=== PATIENT | male | born 1970 | race Caucasian/White ===

== ENCOUNTER 2024-10-26 23:48 | Day surgery (SDC) | payer OTHER, SELFPAY ==
[2024-10-26 19:46] VITALS: BP 158/91
[2024-10-26 20:15] LABS: % Basophils 0.4 % (0-2); % Eosinophils 1.3 % (0-6); % Immature Granulocytes 0.2 % (0-0.5); % Monocytes 8.2 % (1.7-9.3); % Neutrophils 57.9 % (42.2-75.2); Absolute Eosinophils 0.1 10^3/uL (0-0.7); Absolute Monocytes 0.8 10^3/uL (0.1-0.6); Absolute Neutrophils 5.5 10^3/uL (1.4-6.5); Hematocrit 48.1 % (39.0-52.0); Hemoglobin 16.1 g/dL (13.0-18.0); Mean Corp Hgb Conc. 33.5 g/dL (33.0-37.0); Mean Corpuscular Hgb 30.1 pg (27.0-31.0); Mean Corpuscular Volume 89.9 fL (80.0-94.0); Mean Platelet Volume 9.3 fL (7.4-10.4); Nucleated Red Blood Cells % 0 % (-); Platelet Count 274 10^3/uL (130-400); Red Blood Cell Count 5.35 10^6/uL (4.70-6.10); Red Cell Dist. Width 13.2 % (11.5-14.5); White Blood Cell Count 9.5 10^3/uL (4.8-10.8)
[2024-10-26 20:17] LABS: Urine Albumin 1+ (Neg - Trace); Urine Bilirubin Negative (Negative); Urine Character Clear (Clear); Urine Color Yellow; Urine Glucose Negative (Negative); Urine Ketone Negative (Negative); Urine Leukocyte Negative (Negative); Urine Nitrite Negative (Negative); Urine Occult Blood 4+ (Negative); Urine Specific Gravity 1.025 (<1.030); Urine Urobilinogen Negative (Neg - 1+)
[2024-10-26] MEDS: TYLENOL 1000 MG PO (20:24)
[2024-10-26 20:27] LABS: ALT (SGPT) 35 U/L (0-50); AST (SGOT) 35 U/L (17-59); Albumin 4.7 g/dl (3.5-5.0); Alkaline Phosphatase 60 U/L (38-126); Blood Urea Nitrogen 16 mg/dl (9-20); Calcium 9.9 mg/dl (8.4-10.2); Carbon Dioxide 31 mmol/L (22-30); Chloride 101 mmol/L (98-107); Glucose 108 mg/dl (70-99); Potassium 4.4 mmol/L (3.5-5.1); Sodium 140 mmol/L (135-145); Total Bilirubin 1.1 mg/dl (0.2-1.3); Total Protein 7.9 g/dl (6.3-8.2); eGFR > 60.00
[2024-10-26 20:43] LABS: Urine Bacteria Few (Negative); Urine Red Blood Cell 50-60 /HPF (0-2); Urine Squamous Cell 0-2 /LPF (Few); Urine White Cell 0-2 /HPF (0-5)
[2024-10-26 21:26] VITALS: BMI 33.8
[2024-10-26] MEDS: NSS 1000 IV (21:29)
[2024-10-26] MEDS: TORADOL 15 MG IV (21:34)
[2024-10-26 21:56] VITALS: BP 147/90
[2024-10-26 22:00] VITALS: BP 134/80
[2024-10-26 23:00] VITALS: BP 137/80
--- NOTE | 2024-10-26 23:01 | ED.GENMED ---
History of Present Illness
General
Chief Complaint: Back Pain
Source: patient and spouse
Exam Limitations: none
Time Seen by Provider: 10/26/24 21:05
Nursing documentation reviewed up to this point in time: agreed with
History of Present Illness
History of Present Illness:
53-year-old male past medical history of hypertension hyperlipidemia presenting to the emergency department with right-sided low back pain described as very severe achy and dull similar episode yesterday that self resolved again today a few hours
prior to arrival. Has been intermittent since. Associated nausea no vomiting. No significant changes in urination.
Review of Systems
Review of Systems
Allergies reviewed?: Yes
All Other Systems: ROS reviewed and negative except as documented in HPI and ROS
Phy Exam
Physical Exam
Physical Exam:
GENERAL: Alert , in no apparent distress
EYE: pupils equal and reactive
NECK: Supple, no significant adenopathy.
ENT: o/p clr, mmm.
CARDIAC: Regular rate and rhythm .
LUNGS: Clear breath sounds bilaterally, no acute respiratory distress, no wheezes/rales/rhonchi
ABDOMEN: Soft, without focal tenderness, no r/g, no cvat
NEUROLOGICAL: Alert and oriented, no focal neuro deficits
SKIN: Warm and dry, skin intact.
MUSCULOSKELETAL: No edema, well perfused.
PSYCH: Normal and appropriate interaction.
Course
Orders/Labs/Results
Orders:
Orders
10/26/24 19:57
Complete Blood Count/With Diff Urgent
Comprehensive Metabolic Panel Urgent
Urinalysis Reflex To Culture Urgent
Date Specimen was Collected: 10/26/24
Time Specimen was Collected: 19:49
Urine Microscopic Reflex Cult Urgent
10/26/24 20:23
Acetaminophen [Tylenol] 1,000 mg .ROUTE .STK-MED ONE
10/26/24 20:24
Acetaminophen [Tylenol] 1,000 mg PO NOW STA
10/26/24 21:13
CT Abd/pel Without Iv Or Oral Urgent
Comment:
Reason For Exam: right flank pain blood in urine
0.9% Sodium Chloride 1000 ml [Nss] 1,000 ml IV BOLUS
Ketorolac [Toradol] 15 mg IV NOW STA
Abnormal Lab Results
10/26/24
19:57
Absolute Monos (auto) 0.8 H 10^3/uL
(0.1-0.6)
Carbon Dioxide 31 H mmol/L
(22-30)
Glucose 108 H mg/dl
(70-99)
Ur Occult Blood Reflex 4+ A
(Negative)
Urine RBC 50-60 A /HPF
(0-2)
Urine Bacteria (Reflex) Few A
(Negative)
Urine Albumin (Reflex) 1+ A
(Neg - Trace)
10/26/24 19:57
10/26/24 19:57
Vital Signs
Initial and Last Documented VS:
Initial Vital Signs
Temp Pulse Resp BP Pulse Ox
98.2 F 83 20 158/91 99
10/26/24 19:46 10/26/24 19:46 10/26/24 19:46 10/26/24 19:46 10/26/24 19:46
Last Documented Vital Signs
Temp Pulse Resp BP Pulse Ox
98.2 F 83 20 134/80 95
10/26/24 19:46 10/26/24 19:46 10/26/24 19:46 10/26/24 22:00 10/26/24 22:15
MDM/Problems Addressed
MDM/Problems Addressed:
53-year-old male presenting to the emergency department today with concerns of right-sided flank discomfort. Here labs unremarkable urinalysis does show red blood cells but no evidence of infection. CT scan confirming right sided 8 mm UPJ stone.
This was discussed with urology recommend bring into the hospital for extraction tomorrow. Patient will be n.p.o. midnight. Otherwise symptoms well-controlled here with IV pain medication.
*Critical Care Note
Total Time (30-74mins, 75-104mins- exclusive of procedures): Not Applicable
ED Attending Note
-
Portions of this chart may have been created with voice recognition software.� Occasional wrong word or��sound alike� substitutions may have occurred due to the inherent limitations of voice recognition software.
Discharge Plan
Departure
Patient Disposition: Admit
Date of Disposition: 10/26/24
Time of Disposition: 23:06
Admit to: Med/Surg
Admit to doctor: Candido
Presentation/result/management discussed w/ accepting MD/DO: Hospitalist
Patient with high blood pressure during this ER visit?: No
Condition: Good
Covid-19: Not Applicable
Discharge Problem:
Kidney stone on right side
Referrals:
Cristal Bright DO [Family Provider] -
Interventions
Interventions:
*Risk Screen - Suicide Last Done: 10/26/24 19:46
*General Assessment Last Done: 10/26/24 19:46
*Neglect/Abuse Screening Last Done: 10/26/24 19:46
ED- Fall Risk Assessment Last Done: 10/26/24 21:26
*ED COVID-19 Vaccine History Last Done: 10/26/24 19:46
ED-Musculoskeletal Assessment Last Done: 10/26/24 21:26
Discharge Date and Time
Print Language: AMHARIC
--- NOTE | 2024-10-26 23:24 | HPS.HSE ---
Family Physician
-
Family Physician: Cristal Bright
Chief Complaint
-
Right Flank
History of Present Illness
Patient is a 53 y/o male past medical history of hypertension, hyperlipidemia and pre-diabetes who presents with right flank pain. Patient reports some pain yesterday that last about 30 min then resolved. Pain recurred today but was more severe.
He denies any radiation of the pain. He denies dysuria, urinary frequency or hematuria. He denies fevers. He denies prior history of kidney stones
Medical History
Past Medical History
Past Medical History: Reports Other
Additional Past Medical History:
Essential Hypertension
Hyperlipidemia
Pre-Diabetes
Obesity
Past Surgical History: Reports None
Social History
Tobacco: Non-smoker
Alcohol: Other (Rare)
Family History
Family History: Not pertinent
Allergies / Home Medications
Allergies reflects when Allergies were last updated in [facility].
Home Medications with original date entered in [facility]
Allergy/Medication List:
Allergies
Allergy/AdvReac Type Severity Reaction Status Date / Time
No Known Allergies Allergy Unverified 10/26/24 19:47
Home Medications
amlodipine 5 mg-benazepril 20 mg capsule 1 cap PO HS 10/26/24
atorvastatin 10 mg tablet 10 mg PO HS 10/26/24
semaglutide 2 mg/dose (8 mg/3 mL) subcutaneous pen injector (Ozempic) 2 mg SC BOBBY 10/26/24
Review of Systems
-
A 12 point ROS was completed and negative except as noted: Yes
Constitutional: Denies Fever
Respiratory: Denies Cough or Trouble Breathing
Cardiac: Denies Chest Pain or Palpitations
: Reports See HPI
Physical Exam
Vital Signs
Vital Signs
Temp Pulse Resp BP Pulse Ox
98.2 F 83 20 137/80 97
10/26/24 19:46 10/26/24 19:46 10/26/24 19:46 10/26/24 23:00 10/26/24 23:15
Physical Exam
General: Comfortable and Conversant
HEENT: Anicteric and Moist mucous membranes
Respiratory: Clear and Non Labored Respirations
Cardiac: S1/S2 and Regular Rhythm
GI: Soft and Non Tender
Genito-urinary: No costovertebral tender
Musculoskeletal: No Clubbing, No Cyanosis and No Edema
Skin: Warm and Dry
Neuro: Awake, Alert, Oriented and Nonfocal/grossly intact
Psych: Calm
Laboratory Results
-
10/26/24 19:57
10/26/24 19:57
Laboratory Results
Total Bilirubin 1.1 mg/dl (0.2-1.3) 10/26/24 19:57
AST 35 U/L (17-59) 10/26/24 19:57
ALT 35 U/L (0-50) 10/26/24 19:57
Alkaline Phosphatase 60 U/L (38-126) 10/26/24 19:57
Abd/Pelvis CT Scan:
Obstructing right ureteropelvic junction calculus.
Data Reviewed
-
CT Scan: Report Reviewed by me
Lab Data: Labs Reviewed by me
Impression/Plan
-
Obstructing Right UPJ Stone
-Consult Urology
-NPO after midnight for OR tomorrow
-Continue IVFs
-Start Flomax
-UA does not appear infected therefore will hold on antibiotics - Defer pre-op antibiotics to Urology
Essential Hypertension
-Continue amlodipine/benazepril
Hyperlipidemia
-Continue atorvastatin
Pre-Diabetes
-Patient reports last HgbA1c in the 5s range after weight
Obesity
-Patient maintained on Ozempic
-Recently lost 30lbs
DVT proph: SCDs
Code Status: Full Code
--- NOTE | 2024-10-26 23:37 | W.PN.UPDATE ---
Update Note
Progress Note Update
Patient seen and continue therapy. I agree with the findings on history and physical. I concur with the assessment and plan.
This is a 53-year-old with past medical history significant for hyperlipidemia, obesity, hypertension presenting to the emergency department with approximately 2-day history of right-sided flank pain. He had an episode of flank pain that was
transient yesterday. However today he had a more persistent episode of right-sided flank pain without associated nausea or vomiting. Denies seeing any gross hematuria. He denied any fevers or chills.
Patient denies any dysuria. He denies history of prior nephrolithiasis. He reports about a 30 pound weight gain over the last 2 to 3 months since his been on semaglutide.
In the emergency department he was afebrile, blood pressure was 134/80 with a pulse of 83 satting 95% on room air. He was afebrile with a temperature of 98.2.
White count was 9.5, hemoglobin 16.1 platelet normal. Electrolytes were all within normal range with a slight elevated bicarb of 31. Creatinine was 1.2 which is his baseline. UA shows positive blood, negative leukocyte esterase and negative
nitrites, no leuks, few bacteria. CT of the abdomen and pelvis shows 8 mm stone in the UPJ
Case discussed with urology with planned procedure in AM.
Admit to [facility]
N.p.o. after midnight
Start tamsulosin
IV fluids,
Strain urine
Pain control and antiemetics
Giving negative UA hold off of antibiotics, patient will receive perioperative Ancef per urology
Urology consulted
SCDs for DVT prophylaxis
CODE STATUS full code
[2024-10-27] VITALS (10 sets, daily range): BP systolic 108–159; BP diastolic 70–94; BMI 34.6
--- NOTE | 2024-10-27 00:15 | PTCARENOTE ---
Pt arrived to room 415-01. Pt ambulated from stretcher to bed. Pt AAOx3, VSS. Pt c/o 09/16 right lower back pain. Pt oriented to room, call tran placed within reach.
[2024-10-27] MEDS: ROXICODONE 5 MG PO (01:00)
[2024-10-27] MEDS: NSS 1000 IV ×2 (01:00→08:57)
[2024-10-27 07:19] LABS: Hematocrit 43.9 % (39.0-52.0); Hemoglobin 14.6 g/dL (13.0-18.0); Mean Corp Hgb Conc. 33.3 g/dL (33.0-37.0); Mean Corpuscular Hgb 29.7 pg (27.0-31.0); Mean Corpuscular Volume 89.2 fL (80.0-94.0); Mean Platelet Volume 9.6 fL (7.4-10.4); Platelet Count 255 10^3/uL (130-400); Red Blood Cell Count 4.92 10^6/uL (4.70-6.10); White Blood Cell Count 10.2 10^3/uL (4.8-10.8)
[2024-10-27 07:45] LABS: Blood Urea Nitrogen 17 mg/dl (9-20); Calcium 8.9 mg/dl (8.4-10.2); Carbon Dioxide 27 mmol/L (22-30); Chloride 106 mmol/L (98-107); Estimated Creatinine Clearance 84 ml/min; Glucose 93 mg/dl (70-99); Potassium 4.2 mmol/L (3.5-5.1); Sodium 138 mmol/L (135-145); eGFR > 60.00
[2024-10-27] MEDS: FLOMAX 0.4 MG PO (08:45)
[2024-10-27] MEDS: ROCEPHIN 1000 MG IV (08:45)
[2024-10-27] MEDS: STERILE WATER FOR INJECTION 10 ML IV (08:47)
--- NOTE | 2024-10-27 09:03 | W.PN.URO.CBU ---
Today's Communication / Plan
-
for op room
Assessment / Plan
-
impassabke rt upj stone and 2 l p stones for rt attempt u/l/s
Diagnosis
-
Date of Service: October 27, 2024
-
Patient Diagnosis:8x6 rt upj stone partial obstruction
Post Op Day:
Subjective
-
rt colic
Objective
-
Vital Signs
Temp Pulse Resp BP Pulse Ox
98.5 F 80 24 159/85 97
10/27/24 07:30 10/27/24 07:30 10/27/24 07:30 10/27/24 07:30 10/27/24 07:30
Intake and Output
10/26/24 10/27/24 10/28/24
06:59 06:59 06:59
Other:
Number of approximated MODERATE 1
amounts of urine
Laboratory Results
10/27/24 06:31
10/27/24 06:31
Review of Systems
-
: Flank Pain and Bleeding
Physical Exam
-
General - well developed, well nourished, no acute distress
Chest - clear bilaterally
Abdomen - soft, non-tender, positive bowel sounds, no CVAT, no incisional pain or distention
Genitalia - normal
Rectal - normal
Skin - warm & dry with no rash
Neuro - AOx3, no motor deficits
Extremities - no clubbing, no cyanosis, no edema
Incision - clean, dry
Dressing - clean, dry, intact
Care Review
Data Reviewed
Discussed with: Hospitalist and Nursing
CT Scan: Image Pers Reviewed
--- NOTE | 2024-10-27 09:03 | W.PN.HOSP.TC ---
Today's Communication/Plan
-
see PN
Assessment / Plan
Assessment / Plan
53yo M with PMHx of HTN, HLD came with 20min episode of R flank pain, found obstructing stone in R UPJ. Urology to managge. No fever at home and no leukocytosis.
A/P:
#Obstructing R nephrolithiasis
Hydration
follow Cr
Urology
No signs of infection on UA, Ceftriaxone periop, further Abx depending on findings during procedure
Sed stone to analysis
pain mgmt
#R inguinal hernia
R anteriolateral protrusion of bladder without extension to inguinal canal
Outpatient General Sx
#Essential HTN
#HLD
cont home meds
DVT ppx SCDs
FUll code
I have spent at least 57min reviewing chart, test results, communication with consultants and direct patient care
Anticipated Discharge: Within 24 hours
Subjective/Interval History
-
Date of Service: October 27, 2024
Objective Data
-
Labs:
Laboratory Results
10/27/24
06:31
WBC 10.2
Hgb 14.6
Hct 43.9
Plt Count 255
Sodium 138
Potassium 4.2
Chloride 106
Carbon Dioxide 27
BUN 17
Creatinine 1.2
Glucose 93
Calcium 8.9
Vital Signs:
Vital Signs
Temp Pulse Resp BP Pulse Ox
98.5 F 80 24 159/85 97
10/27/24 07:30 10/27/24 07:30 10/27/24 07:30 10/27/24 07:30 10/27/24 07:30
Review of Systems
-
History Source: Patient
All other systems: Reviewed and negative
Physical Exam
-
General: No Apparent Distress
HEENT: Normocephalic
Respiratory: Clear to Auscultation
GI: Soft, Nontender and Nondistended
Genito-urinary: No Costovertebral Tender
Neuro: Awake, Alert, Oriented and AO x 3
Psych: Calm
--- NOTE | 2024-10-27 12:10 | CM ---
Pt seen bedside. Initial assessment completed. Admitted for right flank pain.
Pt reports that he lives w/ spouse and children [place]- no steps to enter. Pt is independent w/ ambulating, does not require any devices. Pt independent w/ ADLs, no DME identified.
Denies SNF/VN/PT hx. Pt denies any current OP or home services
Address, point of contact and insurance verified
PCP: Dr. Cristal Bright
Pharmacy: [facility]
Plan: Home; no needs likely
--- NOTE | 2024-10-27 13:49 | W.IMMPOSTOP ---
Surgical Immed Post Op Note
-
Primary Surgeon: Gisele
Pre-op Diagnosis: Obstructing right UPJ stone
Post-op Diagnosis: Same
Procedure Performed: right URS/LL/stone extraction/stent placement
Anesthesia Type: GETA
Specimen / Cultures: Stones for analysis/None
Estimated Blood Loss: Negligible
Drains: 4.7Fr x 24 cm JJ right ureteral stent
Complications: None
Operative Findings:
Brownish-yellow (c/w CaOx) large stone impacted in UPJ - manipulated retrograde into upper pole calyx and fragmented to 1-2 mm fragments and stone dust.
Final KUB and cystoscopy confirming appropriate right ureteral stent position.
Spouse (Jennie) updated post-op via telephone.
Possible d/c later today if clinically stable.
[2024-10-27] MEDS: Pyridium 200 MG PO (14:21)
[2024-10-27] MEDS: DETROL LA 4 MG PO (14:22)
--- NOTE | 2024-10-27 16:32 | W.DCSUMMARY ---
Discharge Summary
Discharge Data
Date of Admission: 10/26/24
Date of Discharge: 10/27/24
-
Pending Results: No
Hospital Course
53yo M with PMHx of HTN, HLD came with 20min episode of R flank pain, found obstructing stone in R UPJ. Urology to managge. No fever at home and no leukocytosis. had right URS/LL/stone extraction/stent placement on 10/27/24 with some residual
post-procedural hematuria that can be monitored at home and to be improving. Patient instructed to watch for improvement in urine color or new urinary retention - if bleeding continues or unable to void - come back to ED. Outpatient referral to
[facility] for R inguinal hernia repair. Patient verbalized understanding of the instructions. As per discussion with Urology - no concern for infection during procedure - no need in extended Abx. medically stable for d/c as recovered well after
anetsthesia.
I have spent at least 37min reviewing chart, test results, communication with consultants and direct patient care
Patient managed for:
#Obstructing R nephrolithiasis
#R inguinal hernia
#Essential HTN
#HLD
Discharge Plan
-
Patient Disposition: Home (Routine Discharge)
Diet: Low Cholesterol
Driving Restrictions: As prior to admission
Referrals:
Eddie Hills MD [Active] - (Please call [phone] ([facility]) within 1 business day after discharge to schedule your stent removal in [address] Hills. )
Carson Jaquez MD [Active] - in one to two weeks
Jesús Pierre MD [Active] - in one month (evaluate for R inguinal hernia repair)
Cristal Bright, [Family Provider] -
Additional Discharge Medication Instructions: Blood in urine expected for few days, however urine should be visibly improving with each urination. If continues to bleed or urinary retention - come back to ED
Prescriptions:
New
phenazopyridine [Pyridium] 200 mg tablet
200 mg PO PC PRN (Reason: pain on urination) Qty: 6 0RF
Continued
atorvastatin 10 mg tablet
10 mg PO HS
amlodipine-benazepril 5-20 mg capsule
1 cap PO HS
Ozempic 2 mg/dose (8 mg/3 mL) pen injector
2 mg SC BOBBY
Discharge Orders:
Discharge Patient (As Directed); Ordered 10/27/24
Ordered By: Kashif Castillo
Discharge Date and Time
Print Language: JAPANESE
[2024-10-31 22:39] LABS: Stone Analysis Mass 21 mg
== END 2024-10-27 18:00 | disposition home or self-care (01) ==
LOC: SDS 23:48
PROVIDERS: Emergency Medicine; Physician Assistant Medical; Surgery; CONSULT PHYSICIAN Specialist; EMERGENCY PHYSICIAN Emergency Medicine; FAMILY PHYSICIAN Family Medicine
PROC: 0T768DZ Dilation of Right Ureter with Intraluminal Device, Via Natural or Artificial Opening Endoscopic (ICD-10-PCS; 2024-10-27)
PROC: 0TC38ZZ Extirpation of Matter from Right Kidney Pelvis, Via Natural or Artificial Opening Endoscopic (ICD-10-PCS; 2024-10-27)
DX: N13.2 Hydronephrosis with renal and ureteral calculous obstruction (principal); I10 Essential (primary) hypertension; E78.5 Hyperlipidemia, unspecified; E66.9 Obesity, unspecified; R73.03 Prediabetes; K40.90 Unilateral inguinal hernia, without obstruction or gangrene, not specified as recurrent; Z68.34 Body mass index [BMI] 34.0-34.9, adult; Z79.85 Long-term (current) use of injectable non-insulin antidiabetic drugs; Z79.899 Other long term (current) drug therapy
CPT/HCPCS: 52356; 74018; 74176; 76000; 80048; 80053; 81003; 81015; 82365; 85025; 85027; 96361; 96374; 99285; A4300; C1758; C1769; C1894; C2617